=== PATIENT | female | born 1955 | race Caucasian/White ===

== ENCOUNTER 2020-05-18 12:00 | Emergency (ER) | payer MEDICARE, OTHER ==
[~2020-05-18] VITALS: Ht 162.6 cm; Wt 84.1 kg
--- NOTE | 2020-05-18 13:03 | NUR ---
ATTEMPTED TO CALL BROTHLOURDES LOZADA AT [facility] NUMBER [phone] NO ANSWER. MESSAGE LEFT.
--- NOTE | 2020-05-18 13:36 | NUR ---
PATIENT STATES SHE HAS PROBLEM WITH URINARY INCONTINENCE. ASSISTED TO THE BATHROOM AND GIVEN MESH PANTIES AND PAD. REQUESTED URINE SPECIMEN.
[2020-05-18 14:09] LABS: URINE AMPHETAMINE SCREEN NEGATIVE (Neg); URINE BARBITUATE SCREEN NEGATIVE (Neg); URINE BENZODIAZEPINES SCREEN NEGATIVE (Neg); URINE CANNABINOID SCREEN POSITIVE (Neg); URINE COCAINE SCREEN NEGATIVE (Neg); URINE METHADONE SCREEN NEGATIVE (Neg); URINE OPIATE SCREEN NEGATIVE (Neg); URINE PHENCYCLIDINE SCREEN NEGATIVE (Neg)
[2020-05-18 14:21] LABS: ALANINE AMINOTRANSFERASE 49 U/L (12-78); ALBUMIN 3.9 G/DL (3.4-5.0); ALBUMIN/GLOBULIN RATIO 0.9 (1.1-1.5); ALKALINE PHOSPHATASE 105 IU/L (46-116); ANION GAP 11 (8-16); ASPARTATE AMINO TRANSFERASE 32 U/L (10-37); BILIRUBIN,TOTAL 0.6 MG/DL (0.1-1.0); BLOOD UREA NITROGEN 16 MG/DL (7-18); BUN/CREATININE RATIO 16.7 (6.6-38.0); CALCIUM 9.8 MG/DL (8.5-10.1); CHLORIDE 104 MMOL/L (99-107); CREATININE 0.96 MG/DL (0.40-0.90); GLUCOSE 142 MG/DL (70-104); SODIUM 142 MMOL/L (135-145); TOTAL CARBON DIOXIDE 26.9 MMOL/L (24-32); TOTAL PROTEIN 8.2 G/DL (6.4-8.2); eGFR 59 ML/MIN
[2020-05-18 14:26] LABS: CLARITY,URINE CLEAR (Clear); GLUCOSE, URINE NEGATIVE (Neg); KETONES,URINE TRACE mg/dl (Neg); LEUKOCYTE ESTERASE ,URINE NEGATIVE (Neg); NITRITES, URINE NEGATIVE (Neg); OCCULT BLOOD,URINE TRACE-INTACT (Neg); PROTEIN,URINE 100 mg/dl (Neg); UROBILINOGEN,URINE 0.2 E.U/dL (0.2-1.0)
[2020-05-18 14:28] LABS: ETHANOL < 0.010 GM/DL (0.0-0.010)
[2020-05-18 14:31] LABS: ACETAMINOPHEN < 2.0 UG/ML (10-30)
[2020-05-18 14:31] LABS: COLOR,URINE DARK YELLOW (Yellow); UA COLLECTION TYPE CLN CATCH MIDSTREAM
[2020-05-18 14:35] LABS: BACTERIA,URINE 3+ /HPF (Neg); CELLULAR CAST 0-4 /LPF (NEGATIVE); MUCUS STRANDS FEW /LPF (Neg); RBC,URINE 0-2 /HPF (0-2); SQUAMOUS EPITHELIAL CELL,UR MANY /LPF (FEW)
[2020-05-18 14:39] VITALS: BP 170/110
[2020-05-18 14:42] LABS: HEMATOCRIT 42.4 % (35.0-45.0); HEMOGLOBIN 14.5 g/dl (12.0-16.0); MEAN CORPUSCULAR HGB CONC 34.2 g/dL (33.0-36.5); MEAN CORPUSCULAR VOLUME 90.5 FL (78-98); RED BLOOD COUNT 4.69 X10'6 (4.20-5.60); WHITE BLOOD COUNT 12.4 X10'3 (4.5-11.0)
[2020-05-18 14:43] LABS: BASOPHILS # (AUTO) 0.1 X10'3 (0-0.2); BASOPHILS % (AUTO) 0.7 % (0-1); EOSINOPHILS # (AUTO) 0.1 X10'3 (0-0.9); EOSINOPHILS % (AUTO) 0.6 % (0-6); LYMPHOCYTES # (AUTO) 1.9 X10'3 (1.1-4.8); LYMPHOCYTES % (AUTO) 15.5 % (21-51); MEAN PLATELET VOLUME 8.2 FL (7.4-10.4); MONOCYTES # (AUTO) 0.8 X10'3 (0-0.9); MONOCYTES % (AUTO) 6.5 % (2-12); NEUTROPHILS # (AUTO) 9.5 X10'3 (1.8-7.7); NEUTROPHILS % (AUTO) 76.7 % (42-75); PLATELET COUNT 299 X10'3 (140-440); RED CELL DISTRIBUTION WIDTH 13.3 % (11.5-14.5)
[2020-05-18] MEDS ORDERED: CYCL-1 PO (14:51)
[2020-05-18] MEDS ORDERED: AMLO2.5T5 PO (14:51)
[2020-05-18] MEDS ORDERED: ATEN50TA PO (14:51)
[2020-05-18] MEDS ORDERED: GABA800T PO (14:51)
[2020-05-18] MEDS ORDERED: VENL25TA48 PO (14:51)
[2020-05-18] MEDS ORDERED: BENA5TAB39 PO (14:51)
[2020-05-18] MEDS ORDERED: LORazepam 1 MG tablet PO ONE (15:35)
--- NOTE | 2020-05-18 19:01 | NUR ---
PT UP TO THE BR
== END 2020-05-18 20:20 | disposition home or self-care (01) ==
LOC: ER 12:01
DX: R56.9 Unspecified convulsions (principal); F41.9 Anxiety disorder, unspecified; Z88.5 Allergy status to narcotic agent; Z79.899 Other long term (current) drug therapy
CPT/HCPCS: 36415; 70450; 80053; 80305; 80320; 80329; 81001; 84443; 85025; 99284

== ENCOUNTER 2022-11-20 12:11 | Emergency (ER) | payer MEDICARE, OTHER ==
[~2022-11-20] VITALS: Ht 175.3 cm; Wt 81.8 kg
[~2022-11-20 12:11] MED LIST: AMLO2.5T5 PO; ATEN50TA PO; BENA5TAB39 PO; CYCL-1 PO; GABA800T PO; VENL25TA48 PO
[2022-11-20 12:18] VITALS: TEMP 98.8
[2022-11-20 13:04] LABS: BASOPHILS # (AUTO) 0.1 X10'3 (0-0.2); BASOPHILS % (AUTO) 0.9 % (0-1); EOSINOPHILS # (AUTO) 0.2 X10'3 (0-0.9); EOSINOPHILS % (AUTO) 2.3 % (0-6); HEMATOCRIT 33.7 % (35.0-45.0); HEMOGLOBIN 11.3 g/dl (12.0-16.0); LYMPHOCYTES # (AUTO) 1.1 X10'3 (1.1-4.8); LYMPHOCYTES % (AUTO) 13.3 % (21-51); MEAN CORPUSCULAR HEMOGLOBIN 30.6 PG (27.0-31.0); MEAN CORPUSCULAR HGB CONC 33.4 g/dL (33.0-36.5); MEAN CORPUSCULAR VOLUME 91.8 FL (78-98); MEAN PLATELET VOLUME 7.2 FL (7.4-10.4); MONOCYTES # (AUTO) 0.5 X10'3 (0-0.9); MONOCYTES % (AUTO) 6.3 % (2-12); NEUTROPHILS # (AUTO) 6.4 X10'3 (1.8-7.7); NEUTROPHILS % (AUTO) 77.2 % (42-75); PLATELET COUNT 299 X10'3 (140-440); RED BLOOD COUNT 3.67 X10'6 (4.20-5.60); RED CELL DISTRIBUTION WIDTH 13.6 % (11.5-14.5); WHITE BLOOD COUNT 8.3 X10'3 (4.5-11.0)
[2022-11-20 13:17] LABS: ALANINE AMINOTRANSFERASE 32 U/L (12-78); ALBUMIN 3.1 G/DL (3.4-5.0); ALBUMIN/GLOBULIN RATIO 0.9 (1.1-1.5); ALKALINE PHOSPHATASE 139 IU/L (46-116); ANION GAP 8 (8-16); ASPARTATE AMINO TRANSFERASE 136 U/L (10-37); BILIRUBIN,TOTAL 0.3 MG/DL (0.1-1.0); BLOOD UREA NITROGEN 17 MG/DL (7-18); BUN/CREATININE RATIO 12.9 (10.0-20.0); CALCIUM 9.1 MG/DL (8.5-10.1); CHLORIDE 107 MMOL/L (99-107); CREATININE 1.32 MG/DL (0.40-0.90); GLUCOSE 97 MG/DL (70-104); POTASSIUM 3.7 MMOL/L (3.5-5.1); SODIUM 141 MMOL/L (135-145); TOTAL CARBON DIOXIDE 26.1 MMOL/L (24-32); TOTAL PROTEIN 6.4 G/DL (6.4-8.2); eGFR 40 ML/MIN
[2022-11-20] MEDS ORDERED: AMLO10TA13 PO (14:52)
[2022-11-20] MEDS ORDERED: LAMO200T10 PO (14:52)
[2022-11-20] MEDS ORDERED: ZONI100C87 PO (14:52)
[2022-11-20] MEDS ORDERED: VENL150C58 PO (14:52)
[2022-11-20] MEDS ORDERED: CLOB10TA17 PO (14:52)
[2022-11-20] MEDS ORDERED: GABA-534 PO (14:55)
[2022-11-20 16:35] LABS: CLARITY,URINE CLOUDY (Clear); COLOR,URINE YELLOW (Yellow); GLUCOSE, URINE NEGATIVE (Neg); KETONES,URINE NEGATIVE (Neg); LEUKOCYTE ESTERASE ,URINE TRACE (Neg); NITRITES, URINE NEGATIVE (Neg); OCCULT BLOOD,URINE NEGATIVE (Neg); PH,URINE 5.5 (4.8-8.0); PROTEIN,URINE NEGATIVE (Neg); UROBILINOGEN,URINE 0.2 E.U/dL (0.2-1.0)
[2022-11-20 16:43] LABS: UA COLLECTION TYPE STRAIGHT CATH
[2022-11-20 16:46] LABS: BACTERIA,URINE 4+ /HPF (Neg); RBC,URINE NONE SEEN /HPF (0-2); SQUAMOUS EPITHELIAL CELL,UR FEW /LPF (FEW)
--- NOTE | 2022-11-20 19:07 | NUR ---
PT INCONTINENT OF URINE. CLEAN BRIEF AND PURE WICK PLACED.
[2022-11-20 22:16] VITALS: BP 151/89; PULSE 65; RESP 16; O2SAT 95
--- NOTE | 2022-11-20 23:15 | NUR ---
BROTHER KIERRA WORRELL LEFT NUMBER [phone]. NO ANSWER AND MAILBOX FULL UNABLE TO LEAVE MESSAGE. CALLED NUMBER LISTED IN CHART, NO ANSWER LEFT VOICEMAIL TO INFORM REGARDING PTS TRANSFER.
[2022-11-21] MEDS ORDERED: CefTRIAXone/D5W-Rocephin 1gm 50 ML IV ONE (00:50)
== END 2022-11-21 00:30 | disposition short-term general hospital (02) ==
LOC: ER 12:11
DX: N39.0 Urinary tract infection, site not specified (principal); R41.82 Altered mental status, unspecified; E78.00 Pure hypercholesterolemia, unspecified; I10 Essential (primary) hypertension; J44.9 Chronic obstructive pulmonary disease, unspecified; G89.29 Other chronic pain; Z86.19 Personal history of other infectious and parasitic diseases; F41.9 Anxiety disorder, unspecified; F32.9 Major depressive disorder, single episode, unspecified; Z90.710 Acquired absence of both cervix and uterus; Z98.890 Other specified postprocedural states; Z88.5 Allergy status to narcotic agent; Z79.899 Other long term (current) drug therapy
CPT/HCPCS: 36415; 70450; 70551; 71045; 72141; 80053; 81001; 82948; 84484; 85025; 87088; 93005; 99285; C1758

== ENCOUNTER 2023-02-01 12:19 | Inpatient (IN) | payer MEDICARE, OTHER ==
[~2023-02-01] VITALS: Ht 165.1 cm; Wt 89.0 kg
[~2023-02-01 12:19] MED LIST changes: +AMLO10TA13 PO; -AMLO2.5T5 PO; -ATEN50TA PO; -BENA5TAB39 PO; +CLOB10TA17 PO; -CYCL-1 PO; +GABA-535 PO; -GABA800T PO; +LAMO200T10 PO; +VENL150C58 PO; -VENL25TA48 PO; +ZONI100C87 PO
[2023-02-01 14:19] LABS: BASOPHILS % (AUTO) 0.7 % (0-1); EOSINOPHILS # (AUTO) 0.2 X10'3 (0-0.9); EOSINOPHILS % (AUTO) 2.3 % (0-6); HEMATOCRIT 38.7 % (35.0-45.0); HEMOGLOBIN 12.5 g/dl (12.0-16.0); LYMPHOCYTES # (AUTO) 1.3 X10'3 (1.1-4.8); LYMPHOCYTES % (AUTO) 19.8 % (21-51); MEAN CORPUSCULAR HEMOGLOBIN 29.2 PG (27.0-31.0); MEAN CORPUSCULAR HGB CONC 32.3 g/dL (33.0-36.5); MEAN CORPUSCULAR VOLUME 90.4 FL (78-98); MEAN PLATELET VOLUME 9.9 FL (7.4-10.4); MONOCYTES # (AUTO) 0.5 X10'3 (0-0.9); MONOCYTES % (AUTO) 7.5 % (2-12); NEUTROPHILS # (AUTO) 4.6 X10'3 (1.8-7.7); NEUTROPHILS % (AUTO) 69.7 % (42-75); PLATELET COUNT 242 X10'3 (140-440); RED BLOOD COUNT 4.28 X10'6 (4.20-5.60); RED CELL DISTRIBUTION WIDTH 15.3 % (11.5-14.5); WHITE BLOOD COUNT 6.7 X10'3 (4.5-11.0)
[2023-02-01 14:24] LABS: ALANINE AMINOTRANSFERASE 11 U/L (12-78); ALBUMIN 3.4 G/DL (3.4-5.0); ALBUMIN/GLOBULIN RATIO 0.9 (1.1-1.5); ALKALINE PHOSPHATASE 133 IU/L (46-116); ANION GAP 9 (8-16); ASPARTATE AMINO TRANSFERASE 23 U/L (10-37); BILIRUBIN,TOTAL 0.3 MG/DL (0.1-1.0); BLOOD UREA NITROGEN 25 MG/DL (7-18); BUN/CREATININE RATIO 21.4 (10.0-20.0); CALCIUM 10.8 MG/DL (8.5-10.1); CHLORIDE 110 MMOL/L (99-107); CREATININE 1.17 MG/DL (0.40-0.90); GLUCOSE 109 MG/DL (70-104); POTASSIUM 3.3 MMOL/L (3.5-5.1); SODIUM 146 MMOL/L (135-145); TOTAL CARBON DIOXIDE 27.1 MMOL/L (24-32); TOTAL PROTEIN 7.3 G/DL (6.4-8.2); eCRCL 42 ML/MIN; eGFR 46 ML/MIN
[2023-02-01 15:02] LABS: BILIRUBIN,URINE MODERATE (Neg); CLARITY,URINE CLEAR (Clear); COLOR,URINE YELLOW (Yellow); GLUCOSE, URINE NEGATIVE (Neg); KETONES,URINE TRACE mg/dl (Neg); LEUKOCYTE ESTERASE ,URINE TRACE (Neg); NITRITES, URINE NEGATIVE (Neg); OCCULT BLOOD,URINE NEGATIVE (Neg); PH,URINE 5.5 (4.8-8.0); PROTEIN,URINE 30 mg/dl (Neg)
[2023-02-01 15:06] LABS: UA COLLECTION TYPE FOLEY CATH
[2023-02-01 15:07] LABS: BACTERIA,URINE FEW /HPF (Neg); MUCUS STRANDS FEW /LPF (Neg); RBC,URINE NONE SEEN /HPF (0-2); SQUAMOUS EPITHELIAL CELL,UR FEW /LPF (FEW); WBC,URINE 30-50 /HPF (0-4)
[2023-02-01 15:08] LABS: YEAST MODERATE /HPF (NEGATIVE)
[2023-02-01] MEDS ORDERED: CefTRIAXone/D5W-Rocephin 1gm 50 ML IV ONE (16:05)
--- NOTE | 2023-02-01 16:34 | NUR ---
Spoke to the brother Francia on the phone. Update about patient condition given to him. Alternative phone number he gave me was [phone] Addendum: 02/01/23 at 1635 by GI [phone] Francia gutierrez)
--- NOTE | 2023-02-01 17:38 | NUR ---
Updated brother Francia on pt condition and pending hospitalist decision to admit.
--- NOTE | 2023-02-01 17:54 | NUR ---
Hospitalist at bedside
[2023-02-01] MEDS ORDERED: ondansetron/PF 4mg/2ml inj IV PRN (18:15)
[2023-02-01] MEDS ORDERED: potassium Cl 20 mEq SR tablet PO PRN ×2 (18:15)
[2023-02-01] MEDS ORDERED: magnesium Cl slow-release 64mg tablet PO PRN (18:15)
[2023-02-01] MEDS ORDERED: magnesium 4gm in 100ml NS 100 ML IV PRN (18:15)
[2023-02-01] MEDS ORDERED: acetaminophen 325mg tablet PO PRN (18:15)
[2023-02-01] MEDS ORDERED: magnesium hydroxide 30ml (MOM) UD suspension PO PRN (18:15)
[2023-02-01] MEDS ORDERED: potassium Cl 40MEQ/1/2NS 520ml 520 ML IV PRN (18:15)
[2023-02-01] MEDS ORDERED: mag hydrox/Alum hydrox/simeth 30ml oral suspension PO PRN (18:15)
[2023-02-01] MEDS: dextrose 5%-water 1,000 ML IV SCH (18:17)
[2023-02-01] MEDS: cefazolin 2gm/D5W 100mL 100 ML IV SCH (19:42)
--- NOTE | 2023-02-01 20:00 | NUR ---
Attempted to call brother but was unable to get through, left a voice message for brother to call back. Resident Eneida requesting more information about patient's baseline. Patient shook head yes when asked if patient understood what was being said. When asked what year it is, patient stated it is Janurary or Feburary. Patient understood she is in the hospital and stated her name is Julia.
--- NOTE | 2023-02-01 21:32 | NUR ---
Resident at bedside.
--- NOTE | 2023-02-01 21:38 | NUR ---
Pt did not pass nursing swallow evaluation. Pt NPO until able to swallow safely.
[2023-02-02] MEDS: cefazolin 2gm/D5W 100mL 100 ML IV SCH (00:10)
--- NOTE | 2023-02-02 03:00 | NUR ---
Patient reposistioned and linens changed.
[2023-02-02] MEDS: dextrose 5%-water 1,000 ML IV SCH (05:54)
[2023-02-02 09:01] LABS: BASOPHILS % (AUTO) 0.6 % (0-1); EOSINOPHILS # (AUTO) 0.3 X10'3 (0-0.9); EOSINOPHILS % (AUTO) 5.3 % (0-6); HEMATOCRIT 35.1 % (35.0-45.0); HEMOGLOBIN 11.5 g/dl (12.0-16.0); LYMPHOCYTES # (AUTO) 1.3 X10'3 (1.1-4.8); LYMPHOCYTES % (AUTO) 21.6 % (21-51); MEAN CORPUSCULAR HEMOGLOBIN 29.3 PG (27.0-31.0); MEAN CORPUSCULAR HGB CONC 32.9 g/dL (33.0-36.5); MEAN CORPUSCULAR VOLUME 89.1 FL (78-98); MEAN PLATELET VOLUME 9.5 FL (7.4-10.4); MONOCYTES # (AUTO) 0.5 X10'3 (0-0.9); MONOCYTES % (AUTO) 8.4 % (2-12); NEUTROPHILS # (AUTO) 3.9 X10'3 (1.8-7.7); NEUTROPHILS % (AUTO) 64.1 % (42-75); PLATELET COUNT 247 X10'3 (140-440); RED BLOOD COUNT 3.94 X10'6 (4.20-5.60); RED CELL DISTRIBUTION WIDTH 15.1 % (11.5-14.5)
--- NOTE | 2023-02-02 09:07 | NUR ---
PT ABLE TO STATE NAME BUT UNABLE TO ANSWER OTHER QUESTIONS. AAOX1. FOLLOWS COMMANDS.
--- NOTE | 2023-02-02 09:08 | NUR ---
RN REQ HOSPITAL BED.
--- NOTE | 2023-02-02 09:14 | NUR ---
RN ASSESSED PT AND FOUND NONBLANCHABLE REDNESS TO COCCYX. WOUND CARE CONSULT ORD. PIC PLACED IN CHART.
--- NOTE | 2023-02-02 09:14 | NUR ---
PER DR CARDENAS RN MAY ORD NYSTATIN POWDER
--- NOTE | 2023-02-02 09:14 | NUR ---
RN NOTIFIED DR CARDENAS THAT PT HAD 250 CC UO DURING NOC SHIFT AND 50 CC SO FAR THIS SHIFT. RN WILL CONT TO MONITOR.
[2023-02-02 09:22] LABS: ALBUMIN 3.1 G/DL (3.4-5.0); BLOOD UREA NITROGEN 22 MG/DL (7-18); GLUCOSE 119 MG/DL (70-104); TOTAL CARBON DIOXIDE 32.3 MMOL/L (24-32); eCRCL 49 ML/MIN; eGFR 55 ML/MIN
[2023-02-02 09:27] LABS: ANION GAP 7 (8-16); CHLORIDE 105 MMOL/L (99-107); SODIUM 144 MMOL/L (135-145)
--- NOTE | 2023-02-02 09:37 | NUR ---
PT K IS 3.0. RN NOTIFIED DR MUNGUIA AND REQ IV REPLACEMENT FROM PHARM. RN ALSO NOTIFIED DR MUNGUIA THAT PT NEURO ASSESSMENT IS CHANGING AND PT HAS HX OF SEIZURES. PER DR MUNGUIA RN MAY ORD AND ADMIN 1 GM KEPPRA IV ONCE.
[2023-02-02] MEDS ORDERED: levetiracetam inj 1,000 MG in normal saline 100ml IV soln 90 ML IV SCH (09:40)
[2023-02-02] MEDS ORDERED: levetiracetam inj 1,000 MG in normal saline 100ml IV soln 90 ML IV ONE (09:44)
--- NOTE | 2023-02-02 09:44 | NUR ---
JACQUE CUNNINGHAM FROM PHARM.
--- NOTE | 2023-02-02 10:12 | NUR ---
RN ATTEMPTED TO CALL REPORT AND REC RN IS HELPING A PT AND WILL CALL BACK.
--- NOTE | 2023-02-02 10:16 | NUR ---
RN CONFIRMED WITH PHARMACIST THAT D5 IN WATER AND K IN 1/2 NS ARE COMPATIBLE. KEPPRA IS NOT COMPATIBLE. RN WILL ATTEMPT NEW IV AT THIS TIME. PT IS HARD STICK.
--- NOTE | 2023-02-02 10:21 | NUR ---
CORRECTION TO LAST TWO NOTES AT 1012 AND 1016. ORDS PLACED UNDER SARWAT JOSEPH IN ERROR. NOTES WERE MADE BY THIS RN.
[2023-02-02 11:00] VITALS: BP 181/80; PULSE 64; RESP 21; TEMP 97.3; O2SAT 98
[2023-02-02] MEDS ORDERED: cefazolin 2gm/D5W 100mL 100 ML IV SCH (12:00)
[2023-02-02] MEDS: enoxaparin 40mg/0.4ml syringe SUBCUT SCH (12:46)
[2023-02-02] MEDS: dextrose 5%-1/2 normal saline 1,000 ML IV SCH (14:28)
[2023-02-02] MEDS: CefTRIAXone/D5W-Rocephin 1gm 50 ML IV SCH (15:17)
[2023-02-02 16:14] VITALS: BP 144/81; PULSE 78; RESP 18; TEMP 97.9; O2SAT 95
--- NOTE | 2023-02-02 16:51 | NUR ---
PROVIDER NOTIFIED OF CONVERSATION WITH BROTHER KIERRA WORRELL.
[2023-02-02] MEDS ORDERED: METO-467 PO (16:58)
[2023-02-02] MEDS ORDERED: METO75TA PO (16:58)
[2023-02-02 18:00] VITALS: BP 134/71; PULSE 85; RESP 14; TEMP 97.7; O2SAT 96
--- NOTE | 2023-02-02 18:45 | NUR ---
Patient in room PCU 3014. I have received report from Lorena SANTILLAN and had the opportunity to ask questions and assume patient care.
--- NOTE | 2023-02-02 18:51 | NUR ---
Problems reprioritized. Patient report given, questions answered & plan of care reviewed with JAKE WEBER.
--- NOTE | 2023-02-02 19:00 | NUR ---
unable to assess. Pt agitated. Pt refused assessment Addendum: 02/03/23 at 0005 by Michele Garcia LVN, LVN Amended: Links added.
--- NOTE | 2023-02-02 19:00 | NUR ---
Pt refused skin assessment Addendum: 02/02/23 at 2359 by Michele Garcia LVN, LVN Amended: Links added.
--- NOTE | 2023-02-02 19:00 | NUR ---
Pt refused skin assessment.
--- NOTE | 2023-02-02 19:00 | NUR ---
Pt refused assessment Addendum: 02/03/23 at 0005 by Michele Garcia LVN, LVN Amended: Links added.
[2023-02-02 20:00] VITALS: RESP 18; O2SAT 96
[2023-02-02] MEDS ORDERED: levetiracetam inj 1,000 MG in normal saline 100ml IV soln 100 ML IV SCH (20:00)
--- NOTE | 2023-02-02 20:00 | NUR ---
Patient refused lung assessment. Addendum: 02/03/23 at 0018 by Michele Garcia LVN, LVN Amended: Links added.
--- NOTE | 2023-02-02 20:00 | NUR ---
Pt refused abdominal assessment Addendum: 02/03/23 at 0018 by Michele Garcia LVN, LVN Amended: Links added.
[2023-02-02] MEDS: zonisamide 100mg capsule PO SCH (21:00)
[2023-02-02] MEDS: nystatin 15 GM powder TP SCH (21:00)
[2023-02-02] MEDS ORDERED: lamoTRIgine 100mg tablet PO SCH (21:00)
[2023-02-02 22:00] VITALS: BP 164/104; PULSE 86; RESP 18; TEMP 97.7; O2SAT 93
--- NOTE | 2023-02-02 23:05 | NUR ---
Patient pulled out PIV. Pt removed telebox. She is fiddling with telebox wires. Treatment Counselor attempted to remove telebox. Pt becoming combative. Treatment Counselor attempted to reorient patient. She stated "leave me alone." Pt bed in lowest position and call light within reach. Charge nurse notified. Dr. Zamroa notified.
[2023-02-03] MEDS: dextrose 5%-1/2 normal saline 1,000 ML IV SCH ×2 (00:20→10:20)
--- NOTE | 2023-02-03 02:00 | NUR ---
Pt refused vital signs and telebox.
[2023-02-03 06:17] LABS: BASOPHILS % (AUTO) 0.6 % (0-1); EOSINOPHILS # (AUTO) 0.3 X10'3 (0-0.9); HEMOGLOBIN 12.3 g/dl (12.0-16.0); LYMPHOCYTES # (AUTO) 1.2 X10'3 (1.1-4.8); LYMPHOCYTES % (AUTO) 19.7 % (21-51); MEAN CORPUSCULAR HEMOGLOBIN 29.4 PG (27.0-31.0); MEAN CORPUSCULAR HGB CONC 33.1 g/dL (33.0-36.5); MEAN CORPUSCULAR VOLUME 88.8 FL (78-98); MEAN PLATELET VOLUME 9.3 FL (7.4-10.4); MONOCYTES # (AUTO) 0.4 X10'3 (0-0.9); MONOCYTES % (AUTO) 7.1 % (2-12); NEUTROPHILS # (AUTO) 3.9 X10'3 (1.8-7.7); NEUTROPHILS % (AUTO) 66.6 % (42-75); PLATELET COUNT 245 X10'3 (140-440); RED BLOOD COUNT 4.17 X10'6 (4.20-5.60); RED CELL DISTRIBUTION WIDTH 14.7 % (11.5-14.5); WHITE BLOOD COUNT 5.9 X10'3 (4.5-11.0)
--- NOTE | 2023-02-03 06:18 | NUR ---
Received report from Freddy RIOS
--- NOTE | 2023-02-03 06:19 | NUR ---
Problems reprioritized. Patient report given, questions answered & plan of care reviewed with Erma SANTILLAN.
[2023-02-03 06:43] LABS: ANION GAP 7 (8-16); BLOOD UREA NITROGEN 10 MG/DL (7-18); CALCIUM 10.3 MG/DL (8.5-10.1); CHLORIDE 107 MMOL/L (99-107); CREATININE 0.83 MG/DL (0.40-0.90); GLUCOSE 101 MG/DL (70-104); SODIUM 145 MMOL/L (135-145); TOTAL CARBON DIOXIDE 30.9 MMOL/L (24-32); eCRCL 59 ML/MIN; eGFR 69 ML/MIN
[2023-02-03 06:46] LABS: POTASSIUM 2.9 MMOL/L (3.5-5.1)
[2023-02-03 06:53] VITALS: BP 160/105; PULSE 91; RESP 20; TEMP 97.5; O2SAT 93
[2023-02-03] MEDS ORDERED: metoprolol tartrate 50mg tablet PO ONE (07:20)
--- NOTE | 2023-02-03 07:36 | NUR ---
Found patients FC on the floor. Tubing has a clean cut, patient states she had "fartun that they left" to cut it. No fartun found.
--- NOTE | 2023-02-03 07:39 | NUR ---
Dr. Ugalde at bedside. Patient states she is hear to see the doctor. No need for MRI at this time.
[2023-02-03] MEDS ORDERED: venlafaxine XR 75mg capsule (Q24H) PO SCH (08:00)
[2023-02-03] MEDS: enoxaparin 40mg/0.4ml syringe SUBCUT SCH (08:00)
[2023-02-03] MEDS: CefTRIAXone/D5W-Rocephin 1gm 50 ML IV SCH (08:00)
[2023-02-03] MEDS: zonisamide 100mg capsule PO SCH (08:00)
[2023-02-03] MEDS: nystatin 15 GM powder TP SCH (08:00)
[2023-02-03] MEDS ORDERED: amLODIPine 5mg tablet PO SCH (08:00)
[2023-02-03] MEDS ORDERED: metoprolol tartrate 25mg tablet PO SCH (08:00)
[2023-02-03] MEDS ORDERED: levetiracetam 250mg tablet PO SCH (08:00)
[2023-02-03] MEDS ORDERED: POTASSIUM BICARB 20meq eff tab 20 MEQ TABLET.EFF PO PRN ×2 (08:50)
--- NOTE | 2023-02-03 09:24 | NUR ---
patient refusing her iv, unable to give abx. Patient spit out pills at nurse, was able to get her to take Keppra PO only. Patient states "you can stick the rest up your ass". Pulled off name band and trying to get out of bed. Tabs are placed on patient in position she is unable to reach on her gown. Patient is educated to stay in bed but she keeps trying to get over the rails.
--- NOTE | 2023-02-03 09:31 | NUR ---
Seizure pads in place but patient keeps pulling them off and throwing them
--- NOTE | 2023-02-03 09:57 | NUR ---
Talked with brother on the phone, gave update, Dr. Ugalde updated brother Francia as well.
--- NOTE | 2023-02-03 10:30 | NUR ---
Patient switched to A bed to be seen better by staff, New bed that has an audible alarm that works has been retrieved for patient. Patient will not take K to replace K 2.9. Patient will not wear her tele monitor and it has been DC'd. Patient will not keep her ID band on still.
--- NOTE | 2023-02-03 10:45 | NUR ---
Patient working with PT. Refusing assessment.
[2023-02-03 12:09] VITALS: BP 163/94; PULSE 89; RESP 15; TEMP 98.2; O2SAT 99
--- NOTE | 2023-02-03 14:00 | NUR ---
PRESSURE ULCER EDUCATION: DEFINITION: A pressure ulcer is an area of skin that breaks down when you stay in one position too long. The constant pressure against the skin reduces the blood flow to that area and the affected tissue dies. CAUSES: "Being bedridden or in a wheelchair "Fragile skin "Having a chronic condition, such as diabetes or vascular disease "Inability to move certain parts of your body without assistance "Older age "Incontinence of urine or stool SYMPTOMS: "A reddened area that DOES NOT turn white when pressed on - this can be the beginning of a pressure ulcer "A blister, deep sore or a crater - these can be advanced pressure ulcers FIRST AID: "Relieve the pressure on this area "Keep the area clean and dry "Call your primary doctor if you see any of the above symptoms "DO NOT massage the area "DO NOT use a donut shaped or ring shaped pillow- these actually interfere with the blood flow and cause complications PREVENTION: "Check for pressure ulcers everyday "Change position at least every two hours to relieve pressure "Use items that help relieve pressure- pillows, sheepskin, foam padding, and powders. "Keep skin clean and dry "Eat healthy well balanced meals "Exercise daily IF YOU SEE ANY OF THESE SYMPTOMS WHILE IN THE HOSPITAL - TELL YOUR NURSE IMMEDIATELY. IF YOU SEE ANY OF THESE SYMPTOMS WHILE AT HOME OR HAVE ANY QUESTIONS OR CONCERNS ABOUT PRESSURE ULCERS - CALL YOUR PRIMARY DOCTOR IMMEDIATELY. Addendum: 02/03/23 at 1400 by Parris Soria RN Amended: Links added.
[2023-02-03] MEDS ORDERED: LEVE10002 PO (14:05)
--- NOTE | 2023-02-03 15:18 | NUR ---
Discharged patient with dog daycare provider who is her brother. All education completed with dog daycare provider with verbal acknowledgement of understanding verbally. Patients next dose of home medications written out on discharge papers and aware of the need to flower picker medications at the pharmacy on file. Patient dressed by dog daycare provider. No iv to discontinue. Patient in no distress. ferryboat ticket taker states that she is at baseline and doesn't walk at home, he provides for all her needs. Patient discharged to lobby by with techs.
== END 2023-02-03 15:20 | disposition home or self-care (01) | DRG 689 ==
LOC: ER 12:20 → ED HOLD 18:36 → EDBEDREQ 02-02 05:00 → EDBEDREQTM 02-02 05:00 → PCU 3S 02-02 11:06
PROVIDERS: ADMIT Internal Medicine; ATTEND Internal Medicine
PROC: 4A10X4Z Monitoring of Central Nervous Electrical Activity, External Approach (ICD-10-PCS; principal; 2023-02-02)
DX: N39.0 Urinary tract infection, site not specified (principal); G93.41 Metabolic encephalopathy; N17.0 Acute kidney failure with tubular necrosis; E87.0 Hyperosmolality and hypernatremia; E87.6 Hypokalemia; E86.0 Dehydration; E78.00 Pure hypercholesterolemia, unspecified; G40.909 Epilepsy, unspecified, not intractable, without status epilepticus; I10 Essential (primary) hypertension; J44.9 Chronic obstructive pulmonary disease, unspecified; F32.A Depression, unspecified; B19.20 Unspecified viral hepatitis C without hepatic coma; F41.9 Anxiety disorder, unspecified; M19.90 Unspecified osteoarthritis, unspecified site; M54.9 Dorsalgia, unspecified; G89.29 Other chronic pain; Z90.710 Acquired absence of both cervix and uterus
CPT/HCPCS: 36415; 70450; 71045; 80048; 80053; 81001; 84484; 85025; 87088; 92508; 92616; 95816; 97161; 97530; 99285; A4314; A6213; G0378; J0690; J0696; J1650; J1953; J3480; J3490; J7070